=== PATIENT | female | born 1995 | race Asian ===

== ENCOUNTER 2021-03-06 21:48 | Emergency (ER) | payer OTHER ==
[~2021-03-06] VITALS: Ht 165.1 cm; Wt 54.5 kg
[2021-03-06 21:52] VITALS: TEMP 97.1
[2021-03-06] MEDS ORDERED: AMOXICILLIN 8751 TAB PO (22:33)
[2021-03-06 22:45] VITALS: BP 124/80; PULSE 76
== END 2021-03-06 22:45 | disposition home or self-care (01) ==
LOC: COL.ER 21:48
DX: L08.89 Other specified local infections of the skin and subcutaneous tissue (principal)